=== PATIENT | female | born 1985 | race Two or more races ===

== ENCOUNTER 2018-08-15 09:28 | Emergency (ER) | payer OTHER ==
[~2018-08-15] VITALS: Ht 152.4 cm; Wt 108.9 kg
[~2018-08-15 09:28] MED LIST: PARO20TA7 PO
[2018-08-15 09:43] VITALS: BP 148/99
== END 2018-08-15 10:32 | disposition home or self-care (01) ==
LOC: ER 09:32
DX: S90.32XA Contusion of left foot, initial encounter (principal); I10 Essential (primary) hypertension; Z98.890 Other specified postprocedural states; Z79.899 Other long term (current) drug therapy; Z86.73 Personal history of transient ischemic attack (TIA), and cerebral infarction without residual deficits; X50.1XXA Overexertion from prolonged static or awkward postures, initial encounter; Y93.89 Activity, other specified; Y92.89 Other specified places as the place of occurrence of the external cause; Y99.8 Other external cause status
CPT/HCPCS: 73630-TC

== ENCOUNTER 2018-11-29 10:14 | Emergency (ER) | payer OTHER ==
[~2018-11-29] VITALS: Ht 152.4 cm; Wt 99.8 kg
[2018-11-29 10:25] VITALS: BP 127/84
[2018-11-29] MEDS ORDERED: PROCHLORPERAZINE EDISYLATE 10 MG/2 ML VIAL IV ONE (10:30)
[2018-11-29] MEDS ORDERED: KETOROLAC TROMETHAMINE INJ 30 MG/ML VIAL IV ONE (10:30)
[2018-11-29] MEDS ORDERED: LIDOCAINE VISCOUS 2% UD 15 ML UDC MM ONE (10:30)
[2018-11-29] MEDS ORDERED: IV NS 0.9% 1,000 ML BAG IV ONE (10:30)
[2018-11-29] MEDS ORDERED: diphenhydrAMINE HCL 50 MG/ML VIAL IV ONE (10:30)
[2018-11-29] MEDS ORDERED: diphenhydrAMINE HCL 50 MG/ML VIAL ONE (10:36)
[2018-11-29] MEDS ORDERED: PROCHLORPERAZINE EDISYLATE 10 MG/2 ML VIAL ONE (10:37)
[2018-11-29] MEDS ORDERED: LIDOCAINE VISCOUS 2% UD 15 ML UDC ONE (10:37)
[2018-11-29] MEDS ORDERED: KETOROLAC TROMETHAMINE 15 MG/ML VIAL ONE (10:37)
--- NOTE | 2018-11-29 11:00 | NUR ---
Migraine headache since yesterday, unrelieved with OTC medication. Sore throat s/p swallowing fish bone 4 days ago. PT AAOX4, VSS. DENIES DIZZINESS, CP, SOB, WEAKNESS/TINGLING SENSATION AT THIS TIME. PT SEEN & EVAL'D BY DR. BLANCAS & MEDICATED ORDERED, PT ELDA WELL. WILL CONT TO MONITOR.
--- NOTE | 2018-11-29 15:21 | NUR ---
IV removed. Catheter intact and site benign. Pressure and 4x4 applied to site. No bleeding noted.Patient discharged to home in stable condition. Written and verbal after care instructions given. Patient verbalizes understanding of instruction.
--- NOTE | 2018-11-29 15:24 | NUR ---
ADVISED TO F/U WITH PMD FOR ENT REFERRAL
== END 2018-11-29 15:25 | disposition home or self-care (01) ==
LOC: ER 10:15
DX: G43.909 Migraine, unspecified, not intractable, without status migrainosus (principal); R09.89 Other specified symptoms and signs involving the circulatory and respiratory systems; I10 Essential (primary) hypertension; E11.9 Type 2 diabetes mellitus without complications; Z86.73 Personal history of transient ischemic attack (TIA), and cerebral infarction without residual deficits; Z98.890 Other specified postprocedural states; Z79.899 Other long term (current) drug therapy
CPT/HCPCS: 70360; 70490; 84703; 96374; 96375; 99284; J0780; J1200; J1885; J7030

== ENCOUNTER 2020-07-03 17:08 | Inpatient (IN) | payer OTHER ==
[~2020-07-03] VITALS: Ht 152.4 cm; Wt 108.9 kg
--- NOTE | 2020-07-03 18:00 | NUR ---
Appears comfortable in bed NO obvious distress
--- NOTE | 2020-07-03 18:48 | NUR ---
updated with plan of care. Await admission
[2020-07-03 18:56] LABS: BASOPHILS # (AUTO) 0.1 /CMM (0.0-0.2); BASOPHILS % (AUTO) 0.8 % (0.0-2.0); EOSINOPHILS % (AUTO) 2.1 % (0.0-6.0); HEMATOCRIT 40 % (33-45); HEMOGLOBIN 14.1 g/dL (11.5-14.8); LYMPHOCYTES % (AUTO) 31.3 % (20.0-44.0); MEAN CORPUSCULAR HGB CONC 35 g/dl (31.0-36.0); MEAN CORPUSCULAR VOLUME 90 fL (82-100); MONOCYTES # (AUTO) 0.9 /CMM (0.1-1.30); MONOCYTES % (AUTO) 7.2 % (2.0-12.0); NEUTROPHILS # (AUTO) 7.4 /CMM (1.8-8.9); NEUTROPHILS % (AUTO) 58.6 % (43.0-81.0); PLATELET COUNT (AUTO) 380 /CMM (150-450); RED BLOOD CELL COUNT(AUTO) 4.49 MIL/uL (4.0-5.2); WHITE BLOOD COUNT (AUTO) 12.6 K/uL (4.3-11.0)
--- NOTE | 2020-07-03 19:00 | NUR ---
MOVE SHEET SUBMITTED AND CALLED FOR TELE BED.
[2020-07-03 19:08] LABS: CALCIUM, SERUM 8.5 mg/dL (8.5-10.1); CARBON DIOXIDE 25 mmol/L (21-32); CHLORIDE 100 mmol/L (98-107); CREATININE 0.8 mg/dL (0.6-1.3); GLUCOSE 303 mg/dL (74-106); SODIUM SERUM 138 mmol/L (136-145); UREA NITROGEN, BLOOD 11 mg/dL (7-18)
--- NOTE | 2020-07-03 19:39 | NUR ---
HARLANID SWABBED, SENT TO LAB.
--- NOTE | 2020-07-03 19:40 | NUR ---
TOOK OVER PT CARE. PT AAOX4. AWARE OF ADMISSION. NO ACUTE DISTRESS NOTED.
[2020-07-03] MEDS ORDERED: POTASSIUM CHLORIDE 20 MEQ TAB.PRT.SR PO ONE ×2 (19:57→20:00)
[2020-07-03] MEDS ORDERED: LEVE1000 PO (20:23)
--- NOTE | 2020-07-03 20:23 | NUR ---
SPOKE TO PT REGARDING MED LIST. PT CAN ONLY RECAL THAT SHE TAKES KEPPRA 1000MG BID. PT WILL CALL FAMILY MEMBER FOR MED LIST.
[2020-07-03] MEDS ORDERED: ASPIRIN 325 MG TABLET ONE (20:34)
[2020-07-03] MEDS ORDERED: ASPIRIN 81 MG TAB.CHEW ONE (20:39)
--- NOTE | 2020-07-03 20:39 | NUR ---
LAB CALLED REGARDING NEGATIVE COVID RESULT.
[2020-07-03] MEDS ORDERED: LISI20TA30 PO (20:43)
[2020-07-03] MEDS ORDERED: HYDR50SY PO (20:45)
[2020-07-03] MEDS ORDERED: METF-442 PO (20:45)
[2020-07-03] MEDS ORDERED: TOPI100T38 PO (20:45)
[2020-07-03] MEDS ORDERED: ASPIRIN 81 MG TAB.CHEW PO ONE (21:00)
--- NOTE | 2020-07-03 22:14 | NUR ---
BED ASSIGNMENT 322-2
--- NOTE | 2020-07-03 22:26 | NUR ---
REPORT CALLED TO CAPTAIN OF GUARDSAFSHAN FLORIAN.
--- NOTE | 2020-07-03 22:50 | NUR ---
PT TRASNFERED PER ACLS PROTOCOL
--- NOTE | 2020-07-03 22:50 | NUR ---
RN NOTE PT RECEIVED VIA PASCUAL REPORT GIVEN BY AFSHAN ROY
[2020-07-03 23:00] VITALS: BP 123/67
[2020-07-03] MEDS ORDERED: ACETAMINOPHEN 325 MG TABLET PO PRN (23:30)
[2020-07-03] MEDS ORDERED: ONDANSETRON HCL/PF 4 MG/2 ML VIAL IVP PRN (23:30)
[2020-07-03] MEDS ORDERED: Z GUARD REMEDY 2 OZ OINT TP PRN (23:30)
[2020-07-03] MEDS ORDERED: ENOXAPARIN SODIUM 40 MG/0.4 ML DISP.SYRIN SQ SCH (23:30)
[2020-07-03] MEDS ORDERED: HYDROCODONE/APAP 5/325MG TABLET PO PRN (23:30)
[2020-07-03] MEDS ORDERED: MAG HYDROX/AL HYDROX/SIMETH 30 ML UDC PO PRN (23:30)
[2020-07-03] MEDS ORDERED: MAGNESIUM HYDROXIDE 30 ML UDC PO PRN (23:30)
[2020-07-03] MEDS ORDERED: ZOLPIDEM TARTRATE 5 MG TABLET PO PRN (23:30)
[2020-07-03 23:52] VITALS: BP 123/67
--- NOTE | 2020-07-04 01:31 | NUR ---
RN OPENING NOTES PT RESTING IN BED. A/0 X4. CALM, COOPERATIVE. VITAL SIGNS 1237/ 67, PULSE 69, 98%, 97.9 TEMP. WEIGHT VIA BED SCALE 240.1. PT NO C/O OF PAIN. NO CHEST PAIN AT THE MOMENT. PT STATED SHE JUST WANTED TO REST. WILL CONTINUE TO MONITOR/ OBSERVE.
--- NOTE | 2020-07-04 02:33 | NUR ---
RN NOTE PT COMPLAIN OF CHEST PAIN RADIATING DOWN HER LEFT ARM. ADMINISTERED 1 TAB NORCO. WILL REASSESS. WILL CONTINUE TO MONITOR.
--- NOTE | 2020-07-04 03:24 | NUR ---
RN NOTE GOGO REASSESSED. PT BP 140/ 56. PT STATE DECREASED PAIN BUT PRESSURE IN CHEST IS STILL PRESENT. WILL CONTINUE TO MONITOR. PLAN TO GIVE TYLENOL PRN IF PT ASKED.
[2020-07-04 04:00] VITALS: BP 135/76
[2020-07-04 06:04] LABS: BASOPHILS # (AUTO) 0.1 /CMM (0.0-0.2); BASOPHILS % (AUTO) 0.8 % (0.0-2.0); EOSINOPHILS % (AUTO) 3.4 % (0.0-6.0); HEMATOCRIT 41 % (33-45); LYMPHOCYTES # (AUTO) 4.4 /CMM (0.8-4.8); LYMPHOCYTES % (AUTO) 37.1 % (20.0-44.0); MEAN CORPUSCULAR HGB CONC 34 g/dl (31.0-36.0); MEAN CORPUSCULAR VOLUME 91 fL (82-100); MONOCYTES % (AUTO) 8.2 % (2.0-12.0); NEUTROPHILS % (AUTO) 50.5 % (43.0-81.0); PLATELET COUNT (AUTO) 337 /CMM (150-450); RED BLOOD CELL COUNT(AUTO) 4.52 MIL/uL (4.0-5.2); WHITE BLOOD COUNT (AUTO) 11.9 K/uL (4.3-11.0)
[2020-07-04 07:03] LABS: CALCIUM, SERUM 8.3 mg/dL (8.5-10.1); CREATININE 0.6 mg/dL (0.6-1.3); PHOSPHORUS 2.8 mg/dL (2.5-4.9); POTASSIUM 3.5 mmol/L (3.5-5.1)
[2020-07-04 07:12] LABS: THYROID STIMULATING HORMONE 1.192 uIU/mL (0.358-3.74)
--- NOTE | 2020-07-04 07:25 | NUR ---
RN CLOSING NOTES PT LAYING IN BED. ALERT AND ORIENTED X4. CALM, COOPERATIVE. NO COMPLAINTS OF PAIN AT THIS TIME. NO SIGNS OF DISTRESS AT THIS TIME. ADMIN NORCO AND TYLENOL AT NIGHT PT WAS COMPLAINING OF PRESSURE ON HIS CHEST THAT RADIATES TO HIS LEFT ARM. SEE NURSING NOTES. SAFETY PRECAUTIONS INITIATED. BED LOCKED. BED ALARM ON. LOWEST POSITION. SEMI FOWLERS. WILL CONTINUE TO MONITOR. WILL ENDORSE TO UPCOMING SHIFT. WILL CONTINUE PLAN OF CARE.
[2020-07-04] MEDS ORDERED: PANTOPRAZOLE 40 MG TABLET.DR PO SCH (07:30)
[2020-07-04 07:57] VITALS: BP 122/74
[2020-07-04 08:00] VITALS: BP 122/74
[2020-07-04] MEDS ORDERED: LISINOPRIL (20MG) 20 MG TABLET PO ONE (08:00)
[2020-07-04] MEDS ORDERED: PAROXETINE HCL 20 MG TABLET PO SCH (09:00)
[2020-07-04] MEDS ORDERED: LEVETIRACETAM (250 MG) 250 MG TABLET PO SCH (09:00)
[2020-07-04] MEDS ORDERED: ASPIRIN 81 MG TAB.CHEW PO SCH (09:00)
[2020-07-04] MEDS ORDERED: TOPIRAMATE 100 MG TABLET PO SCH (09:00)
[2020-07-04] MEDS ORDERED: METFORMIN 500 MG TABLET PO SCH (09:00)
--- NOTE | 2020-07-04 09:38 | NUR ---
MS/RN S/B Dr Coyne Seen by MD - may discharge from cardiology standpoint and follow up with primary care doctor. No changes made to current medications.
[2020-07-04 11:55] VITALS: BP 120/85
--- NOTE | 2020-07-04 12:00 | NUR ---
MS/RN S/B Dr Oliveros Seen by DNP - patient to be discharged to home today with follow up in 7-10 days with primary care doctor.
--- NOTE | 2020-07-04 12:15 | NUR ---
MS/technical artist instructions Patient educated s to the importance of following up with primary care doctor in 7-10 days, asked to provide with copy of medical record including 2D echo report. Education provided on all three medications that have been prescribed, including what each drug is for, dosage and when to take. Informed what medications have already been administered today, patient stated understanding. Provided with information about chest pain, when to call PCP versus when to call paramedics. Patient stated understanding. All questions and concerns addressed. Heplock and tele box removed.
[2020-07-04] MEDS ORDERED: ASPI-1169 PO (12:19)
[2020-07-04] MEDS ORDERED: ATOR20TA PO (12:19)
[2020-07-04] MEDS ORDERED: METF-440 PO (12:19)
--- NOTE | 2020-07-04 12:58 | NUR ---
MS/animal stunner Patient discharged in stable condition. All personal belongings with patient and signed for on belongings list. Escorted to main lobby by RN, waiting and providing transport.
== END 2020-07-04 13:00 | disposition home or self-care (01) | DRG 203 ==
LOC: ER 17:15 → TELE 22:32
PROVIDERS: ADMIT Student in an Organized Health Care Education/Training Program; ATTEND Nurse Practitioner Acute Care
DX: R07.89 Other chest pain (principal); E66.01 Morbid (severe) obesity due to excess calories; Z68.42 Body mass index [BMI] 45.0-49.9, adult; Z86.73 Personal history of transient ischemic attack (TIA), and cerebral infarction without residual deficits; I10 Essential (primary) hypertension; Z83.3 Family history of diabetes mellitus; Z82.49 Family history of ischemic heart disease and other diseases of the circulatory system; Z98.890 Other specified postprocedural states; Z79.84 Long term (current) use of oral hypoglycemic drugs; Z79.899 Other long term (current) drug therapy; E11.65 Type 2 diabetes mellitus with hyperglycemia; E87.6 Hypokalemia; G40.909 Epilepsy, unspecified, not intractable, without status epilepticus; G43.909 Migraine, unspecified, not intractable, without status migrainosus; E87.5 Hyperkalemia; D68.59 Other primary thrombophilia
CPT/HCPCS: 36415; 71045-TC; 80048-TC; 80061-TC; 83735-TC; 84100-TC; 84443-TC; 84484-TC; 84702-TC; 85025-TC; 87081-TC; 93307-TC; C9803; G0378; J1650

== ENCOUNTER 2020-10-02 14:33 | Emergency (ER) | payer OTHER ==
[~2020-10-02] VITALS: Ht 152.4 cm; Wt 108.0 kg
[~2020-10-02 14:33] MED LIST changes: +ASPI-1169 PO; +ATOR20TA PO; +HYDR50SY PO; +LEVE1000 PO; +LISI20TA30 PO; +METF-440 PO; +TOPI100T38 PO
--- NOTE | 2020-10-02 15:03 | NUR ---
BIBS. TO ER BED 12. AAOX4. NOT IN RESP DISTRESS. AMBULATORY. CAME IN FOR HEADACHE, DIZZYNESS AND ELEVATED BP. PT'S BP NOTED 178/100. PER PT, HER BP MEDS THAT SHE WAS TAKING WAS STOPPED BY HER PRIMARY MD. SHE DOES NOT KNOWN THE MEDICATION NAMES. SHE REPROTS THAT THE BP MEDS WAS ABRUPTLY STOPPED. PT'S BP NOTED @ 178/00. AWAITING MD FOR DAVID
[2020-10-02 15:27] LABS: BASOPHILS # (AUTO) 0.1 /CMM (0.0-0.2); BASOPHILS % (AUTO) 0.6 % (0.0-2.0); EOSINOPHILS % (AUTO) 2.1 % (0.0-6.0); HEMATOCRIT 44 % (33-45); HEMOGLOBIN 14.9 g/dL (11.5-14.8); LYMPHOCYTES # (AUTO) 4.3 /CMM (0.8-4.8); LYMPHOCYTES % (AUTO) 35.9 % (20.0-44.0); MEAN CORPUSCULAR HGB CONC 34 g/dl (31.0-36.0); MEAN CORPUSCULAR VOLUME 90 fL (82-100); MONOCYTES # (AUTO) 1.1 /CMM (0.1-1.30); MONOCYTES % (AUTO) 9.4 % (2.0-12.0); NEUTROPHILS # (AUTO) 6.2 /CMM (1.8-8.9); PLATELET COUNT (AUTO) 367 /CMM (150-450); RED BLOOD CELL COUNT(AUTO) 4.89 MIL/uL (4.0-5.2); WHITE BLOOD COUNT (AUTO) 11.9 K/uL (4.3-11.0)
[2020-10-02] MEDS ORDERED: IV NS 0.9% 1,000 ML BAG IV ONE ×2 (15:30→16:00)
[2020-10-02 15:45] LABS: ALANINE AMINOTRANSFERASE 43 U/L (12-78); ALBUMIN 3.7 g/dL (3.4-5.0); ALKALINE PHOSPHATASE 105 U/L (46-116); ASPARTATE AMINOTRANSFERASE 25 U/L (15-37); BILIRUBIN,DIRECT 0.1 mg/dL (0.0-0.2); BILIRUBIN,TOTAL 0.7 mg/dL (0.2-1.0); CALCIUM, SERUM 9.3 mg/dL (8.5-10.1); CARBON DIOXIDE 26 mmol/L (21-32); CHLORIDE 100 mmol/L (98-107); CREATININE 0.6 mg/dL (0.6-1.3); GLUCOSE 187 mg/dL (74-106); POTASSIUM 3.6 mmol/L (3.5-5.1); SODIUM SERUM 137 mmol/L (136-145); TOTAL PROTEIN, SERUM 7.7 g/dL (6.4-8.2); UREA NITROGEN, BLOOD 17 mg/dL (7-18)
[2020-10-02] MEDS ORDERED: METOCLOPRAMIDE HCL 10 MG/2 ML VIAL IV ONE (16:00)
--- NOTE | 2020-10-02 16:07 | NUR ---
PT GOT HER MEDICATIONS LIST. WAS TAKING LISINORPRIL 20MG AND METOPROLOL (UNKNOWN DOSE) WHEN IT WAS ABRUPTLY STOPPED BY HER MD. NO TAPERING OF DOSAGE DONE FOR METOPROLOL REPORTED
[2020-10-02] MEDS ORDERED: METOCLOPRAMIDE HCL 10 MG/2 ML VIAL ONE (16:45)
--- NOTE | 2020-10-02 17:18 | NUR ---
after receiving reglan pt verbalized that her headache is better.
--- NOTE | 2020-10-02 17:18 | NUR ---
ordered norvasc 5mg po. pt's bp noted @ 124/79 made aware
[2020-10-02] MEDS ORDERED: AMLODIPINE BESYLATE 5 MG TABLET PO ONE (17:30)
[2020-10-02 18:15] VITALS: BP 139/71
--- NOTE | 2020-10-02 18:15 | NUR ---
Patient discharged to home in stable condition. Written and verbal after care instructions given. Patient verbalizes understanding of instruction.
--- NOTE | 2020-10-02 18:15 | NUR ---
IV removed. Catheter intact and site benign. Pressure and 4x4 applied to site. No bleeding noted.
== END 2020-10-02 18:16 | disposition home or self-care (01) ==
LOC: ER 14:36
DX: R42 Dizziness and giddiness (principal); I10 Essential (primary) hypertension; R51.9 Headache, unspecified; F41.9 Anxiety disorder, unspecified; E11.9 Type 2 diabetes mellitus without complications; Z98.890 Other specified postprocedural states; Z79.82 Long term (current) use of aspirin; Z79.899 Other long term (current) drug therapy; Z79.84 Long term (current) use of oral hypoglycemic drugs; Z86.73 Personal history of transient ischemic attack (TIA), and cerebral infarction without residual deficits
CPT/HCPCS: 36415; 71045; 80048; 80076; 84484; 84702; 85025; 93005; 96374; 99285; J2765; J7040

== ENCOUNTER 2020-12-13 14:38 | Emergency (ER) | payer OTHER ==
[~2020-12-13] VITALS: Ht 152.4 cm; Wt 108.0 kg
[2020-12-13 14:43] VITALS: BP 156/105
[2020-12-13] MEDS ORDERED: IBUP-1955 PO (16:27)
[2020-12-13] MEDS ORDERED: IBUPROFEN 600 MG TABLET PO ONE (16:30)
[2020-12-13] MEDS ORDERED: IBUPROFEN 600 MG TABLET ONE (16:34)
--- NOTE | 2020-12-13 16:36 | NUR ---
Patient discharged to home in stable condition. Written and verbal after care instructions given. Patient verbalizes understanding of instruction.
== END 2020-12-13 16:37 | disposition home or self-care (01) ==
LOC: ER 14:40
DX: M25.551 Pain in right hip (principal); I10 Essential (primary) hypertension; E11.9 Type 2 diabetes mellitus without complications; E78.5 Hyperlipidemia, unspecified; F32.9 Major depressive disorder, single episode, unspecified; G43.909 Migraine, unspecified, not intractable, without status migrainosus; G40.909 Epilepsy, unspecified, not intractable, without status epilepticus; Z86.73 Personal history of transient ischemic attack (TIA), and cerebral infarction without residual deficits; Z98.890 Other specified postprocedural states; Z79.899 Other long term (current) drug therapy; Z79.82 Long term (current) use of aspirin; W18.39XA Other fall on same level, initial encounter; Y93.89 Activity, other specified; Y92.89 Other specified places as the place of occurrence of the external cause; Y99.8 Other external cause status
CPT/HCPCS: 73502; 84703-TC

== ENCOUNTER 2021-02-11 10:22 | Emergency (ER) | payer OTHER ==
[~2021-02-11] VITALS: Ht 152.4 cm; Wt 108.9 kg
[~2021-02-11 10:22] MED LIST changes: +IBUP-1955 PO
--- NOTE | 2021-02-11 10:33 | NUR ---
TO ER BED 4, RLQ ABD PAIN RADIATING TO RT LOWER BACK FOR 3DAYS, +NAUSEA -DIARRHEA, AAOX4, BREATHING EVEN AND NON LABORED
--- NOTE | 2021-02-11 10:45 | NUR ---
URINE COLLECTED AND SENT TO LAB
--- NOTE | 2021-02-11 10:50 | NUR ---
SALINE LOCK ESTABLISHED, BLOOD DRAWN AND SENT LAB
[2021-02-11 11:01] LABS: BASOPHILS # (AUTO) 0.1 K/uL (0.0-0.2); BASOPHILS % (AUTO) 0.8 % (0.0-2.0); EOSINOPHILS % (AUTO) 1.9 % (0.0-6.0); HEMATOCRIT 41 % (33-45); HEMOGLOBIN 13.9 g/dL (11.5-14.8); LYMPHOCYTES # (AUTO) 3.6 K/uL (0.8-4.8); LYMPHOCYTES % (AUTO) 30.6 % (20.0-44.0); MEAN CORPUSCULAR HGB CONC 34 g/dl (31.0-36.0); MEAN CORPUSCULAR VOLUME 90 fL (82-100); MONOCYTES # (AUTO) 1.1 K/uL (0.1-1.30); MONOCYTES % (AUTO) 9.1 % (2.0-12.0); NEUTROPHILS # (AUTO) 6.8 K/uL (1.8-8.9); NEUTROPHILS % (AUTO) 57.6 % (43.0-81.0); PLATELET COUNT (AUTO) 350 K/uL (150-450); RED BLOOD CELL COUNT(AUTO) 4.51 MIL/uL (4.0-5.2); WHITE BLOOD COUNT (AUTO) 11.7 K/uL (4.3-11.0)
[2021-02-11 11:05] LABS: BILIRUBIN,URINE NEGATIVE (NEGATIVE); COLOR,URINE YELLOW (YELLOW); LEUKOCYTE ESTERASE ,URINE NEGATIVE (NEGATIVE); NITRITE, URINE NEGATIVE (NEGATIVE); PROTEIN,URINE NEGATIVE (NEGATIVE); UGLUCOSE NEGATIVE (NEGATIVE); UROBILINOGEN,URINE 0.2 EU/dL (0.2)
[2021-02-11 11:25] LABS: ALBUMIN 3.6 g/dL (3.4-5.0); BILIRUBIN,DIRECT 0.2 mg/dL (0.0-0.2); BILIRUBIN,TOTAL 0.7 mg/dL (0.2-1.0); CALCIUM, SERUM 8.7 mg/dL (8.5-10.1); CREATININE 0.6 mg/dL (0.6-1.3); POTASSIUM 3.8 mmol/L (3.5-5.1); TOTAL PROTEIN, SERUM 7.6 g/dL (6.4-8.2)
--- NOTE | 2021-02-11 11:37 | NUR ---
TAKEN TO CT
[2021-02-11] MEDS ORDERED: KETOROLAC TROMETHAMINE INJ 30 MG/ML VIAL ONE (12:29)
[2021-02-11] MEDS ORDERED: KETOROLAC TROMETHAMINE INJ 30 MG/ML VIAL IV ONE (12:30)
[2021-02-11 13:47] VITALS: BP 129/92
== END 2021-02-11 13:47 | disposition home or self-care (01) ==
LOC: ER 10:26
DX: N83.201 Unspecified ovarian cyst, right side (principal); R10.31 Right lower quadrant pain; I10 Essential (primary) hypertension; E11.9 Type 2 diabetes mellitus without complications; Z90.89 Acquired absence of other organs; Z86.73 Personal history of transient ischemic attack (TIA), and cerebral infarction without residual deficits; Z98.890 Other specified postprocedural states; Z79.82 Long term (current) use of aspirin; Z79.84 Long term (current) use of oral hypoglycemic drugs; Z79.899 Other long term (current) drug therapy
CPT/HCPCS: 36415; 74176; 80048; 80076; 81003; 83690; 84703; 85025; 96374; 99284; J1885

== ENCOUNTER 2021-10-20 12:10 | Emergency (ER) | payer MEDICAID, OTHER ==
[~2021-10-20] VITALS: Ht 152.4 cm; Wt 113.4 kg
--- NOTE | 2021-10-20 12:10 | NUR ---
[employer]WORK[employer] EMPL[employer]EE C/O DIZZINESS AND HIGH BP STARTED 1145H. PLACED COMFORTABLY IN BED. VITALS BEING MONITORED.
[2021-10-20] MEDS ORDERED: MECLIZINE HCL 12.5 MG TABLET ONE ×2 (12:41→14:42)
[2021-10-20] MEDS ORDERED: ACETAMINOPHEN ES 500 MG TABLET ONE (12:41)
[2021-10-20 12:53] LABS: BASOPHILS # (AUTO) 0.1 K/uL (0.0-0.2); BASOPHILS % (AUTO) 0.6 % (0.0-2.0); EOSINOPHILS % (AUTO) 1.8 % (0.0-6.0); HEMATOCRIT 41 % (33-45); HEMOGLOBIN 14.5 g/dL (11.5-14.8); LYMPHOCYTES # (AUTO) 3.4 K/uL (0.8-4.8); LYMPHOCYTES % (AUTO) 33.1 % (20.0-44.0); MEAN CORPUSCULAR HGB CONC 35 g/dl (31.0-36.0); MEAN CORPUSCULAR VOLUME 88 fL (82-100); MONOCYTES % (AUTO) 9.7 % (2.0-12.0); NEUTROPHILS # (AUTO) 5.6 K/uL (1.8-8.9); NEUTROPHILS % (AUTO) 54.8 % (43.0-81.0); PLATELET COUNT (AUTO) 309 K/uL (150-450); RED BLOOD CELL COUNT(AUTO) 4.69 MIL/uL (4.0-5.2); WHITE BLOOD COUNT (AUTO) 10.3 K/uL (4.3-11.0)
[2021-10-20] MEDS ORDERED: IV NS 0.9% 1,000 ML BAG IV ONE (13:00)
[2021-10-20] MEDS ORDERED: ACETAMINOPHEN ES 500 MG TABLET PO ONE (13:00)
[2021-10-20] MEDS ORDERED: MECLIZINE HCL 12.5 MG TABLET PO ONE ×2 (13:00→15:00)
[2021-10-20 13:04] LABS: CALCIUM, SERUM 8.7 mg/dL (8.5-10.1); CREATININE 0.7 mg/dL (0.6-1.3); POTASSIUM 3.7 mmol/L (3.5-5.1)
--- NOTE | 2021-10-20 14:30 | NUR ---
PATIENT WAS ADVISED FOR ADMISSION FOR WORK UP BUT REFUSED.
--- NOTE | 2021-10-20 14:35 | NUR ---
PATIENT CANNOT AMBULATE SAFELY DUE TO DIZZINESS, MD DEBBIE COWART
[2021-10-20] MEDS ORDERED: METOCLOPRAMIDE HCL 10 MG/2 ML VIAL ONE (14:42)
[2021-10-20] MEDS ORDERED: METOCLOPRAMIDE HCL 10 MG/2 ML VIAL IV ONE (15:00)
--- NOTE | 2021-10-20 16:30 | NUR ---
PATIENT WANTS TO GO HOME. SHE IS THINKING ABOUT HER KIDS AT HOME. DR ARTEAGA MADE AWARE
--- NOTE | 2021-10-20 17:29 | NUR ---
Patient discharged to home in stable condition. Written and verbal after care instructions given. Patient verbalizes understanding of instruction.
[2021-10-20 17:31] VITALS: BP 146/79
--- NOTE | 2021-10-20 17:31 | NUR ---
IV CANNULA REMOVED
== END 2021-10-20 17:31 | disposition home or self-care (01) ==
LOC: ER 13:11
DX: E11.65 Type 2 diabetes mellitus with hyperglycemia (principal); R42 Dizziness and giddiness; I10 Essential (primary) hypertension; E11.9 Type 2 diabetes mellitus without complications; Z79.899 Other long term (current) drug therapy
CPT/HCPCS: 36415; 70450; 80048; 85025; 96361; 96374; 99284; J2765; J7030; J8597 ×2